=== PATIENT | female | born 1955 | race Caucasian/White ===

== ENCOUNTER → 2016-11-18 | Outpatient (CLI) | payer MEDICARE, OTHER ==
[~2016-11-18] MED LIST: ASPI-110 PO; FOLI5CAP PO; GEMF600T PO; HYDR-3533 PO; LEVO25TA4 PO; METO50TA PO; PERC5TAB12 PO; PRAV10TA PO; REME45TA PO; TEMA30CA PO; VENL37.5 PO; VITA500T49 PO
[2016-11-18 10:14] LABS: INTERNATIONAL NORMALIZED RATIO 0.9 RATIO; PROTHROMBIN TIME - PATIENT 10.2 SEC (9.8-11.6)
[2016-11-18 10:32] LABS: ALT (GPT) 19 U/L (10-53); ANION GAP 6 MEQ/L (5-15); AST (GOT) 17 U/L (15-37); BICARBONATE 27.1 MEQ/L (21.0-32.0); CHLORIDE 109 MEQ/L (98-107); GLOMERULAR FILTRATION RATE 69 ML/MIN (>89); GLUCOSE,FASTING 92 MG/DL (74-99); POTASSIUM 4.3 MEQ/L (3.5-5.1); SODIUM (NA) 142 MEQ/L (136-145)
[2016-11-18 10:38] LABS: ALKALINE PHOSPHATASE 263 U/L (45-117); BLOOD UREA NITROGEN 11 MG/DL (7-18); TOTAL BILIRUBIN ADULT 0.3 MG/DL (0.2-1.0)
--- NOTE | 2016-11-18 11:10 | RADRPT ---
EXAM DATE/TIME: 11/18/2016 10:00 [place] COMPARISON: No previous studies available for comparison. INDICATIONS : Evaluate for pneumothorax, pneumonia and or communicable diseases. Pre-op for left foot surgery. MEDICAL HISTORY : Hypertension. SURGICAL HISTORY : None. ENCOUNTER: Initial ACUITY: 1 day PAIN SCORE: 0/10 LOCATION: Bilateral chest FINDINGS: PA and lateral views of the chest demonstrate the lungs to be symmetrically aerated without evidence of mass, infiltrate or effusion. The cardiomediastinal contours are unremarkable. Osseous structure s are intact. CONCLUSION: No acute disease. Oscar Rutherford MD on November 18, 2016 at 11:08 Board Certified Radiologist. This report was verified electronically.
== END ==
LOC: CPRE 09:08
PROVIDERS: ATTEND Podiatrist Primary Podiatric Medicine
DX: Z01.812 Encounter for preprocedural laboratory examination (principal); G57.52 Tarsal tunnel syndrome, left lower limb
CPT/HCPCS: 36415; 71020; 80053; 85610

== ENCOUNTER → 2016-11-22 | Day surgery (SDC) | payer MEDICARE, OTHER ==
[~2016-11-22] VITALS: Ht 157.5 cm; Wt 89.5 kg
[~2016-11-22] MED LIST changes: +*morphine SULFATE 8 MG/ML PERIprocedure ONLY ONE; +BETAMETHASONE SOD PHOS/ACETATE SUSP 30 MG/5 ML VIAL ONE; +BUPIVACAINE HCL PF 0.5% 30 ML VIAL ONE; +CHLORHEXIDINE GLUCONATE 2 % 1 PACK (2 CLOTHS) TOPICAL PRN; +INSULIN HUMAN REGULAR 1,000 UNITS/10 ML VIAL SQ PRN; +LACTATED RINGER'S 1000 ML IV PRN; +LIDOCAINE HCL 2% 50 ML VIAL ONE; +METOPROLOL TARTRATE 25 MG TAB PO PRN; +MORPHINE SULFATE 4 MG/ML INJ IV PRN; +NALOXONE HCL 0.4 MG/ML AMP IV PRN; +ONDANSETRON HCL 4 MG/2 ML VIAL IV PUSH ONE; +POVIDONE IODINE 5% (ANTISEPSIS KIT) 4 APPLICATIONS EACH NARE PRN; +PROPOFOL 200 MG/20 ML AMP IV ONE; +Post-op Orders (for Pharmacy) MISC XX ONE; +SODIUM CHLORID 0.9% 500 ML IV PRN; +SODIUM CHLORIDE 0.9% FLUSH 10 ML FLUSH IV FLUSH PRN; +SODIUM CHLORIDE 0.9% FLUSH 10 ML FLUSH IV FLUSH SCH; +TRIAMCINOLONE ACETONIDE 40 MG/ML VIAL ONE; +ceFAZolin 2 GM PREMIX 50 ML IV SCH; +fentaNYL CITRATE 250 MCG/5 ML AMP ONE; +oxyCODONE/ACETAMINOPHEN 5 MG/325 MG TAB ONE; +oxyCODONE/ACETAMINOPHEN 5 MG/325 MG TAB PO ONE
[2016-11-22 08:05] VITALS: BP 125/78; PULSE 70; RESP 16; TEMP 97.5; O2SAT 95
[2016-11-22 08:14] LABS: AUTOMATED NEUTROPHIL # 3.3 TH/MM3 (1.8-7.7); BASOPHIL % 0.4 % (0.0-2.0); EOSINOPHIL # 0.1 TH/MM3 (0-0.4); EOSINOPHIL % 1.8 % (0.0-4.0); HEMATOCRIT 38.4 % (35.0-46.0); HEMO FLAGS DIFF FINAL; LYMPH % 31.2 % (9.0-44.0); LYMPHOCYTE # 1.8 TH/MM3 (1.0-4.8); MEAN CELL VOLUME 94.3 FL (80.0-100.0); MEAN CORPUSCULAR HEMOGLOBIN 30.6 PG (27.0-34.0); MEAN CORPUSCULAR HGB CONC 32.5 % (32.0-36.0); MONO % 9.7 % (0.0-8.0); NEUT % 56.9 % (16.0-70.0); PLATELET COUNT 333 TH/MM3 (150-450); RED BLOOD COUNT 4.07 MIL/MM3 (4.00-5.30); RED CELL DISTRIBUTION WIDTH 14.2 % (11.6-17.2); WHITE BLOOD COUNT 5.8 TH/MM3 (4.0-11.0)
--- NOTE | 2016-11-22 10:09 | PD.OP ---
Operative Report Date of Surgery: Nov 22, 2016 Preoperative Diagnosis: (1) Tarsal tunnel syndrome of left side Postoperative Diagnosis: (1) Tarsal tunnel syndrome of left side Procedure: Tarsal tunnel decompression left foot Anesthesia: Gen. anesthesia Surgeon: Oscar Matias DPM Director Network Development(s): IMELDA Mcdowell Operation and Findings: Patient is brought to the operating room placed on the operating table in supine position. A pneumatic thigh cuff was placed around the patient's left thigh after adequate padding. Patient was given general inhalation anesthesia the left foot and leg were prepped and draped in usual sterile manner. The left lower extremity was elevated above the operating table for a period of 3 minutes at which time the pneumatic ankle cuff was inflated to 275 mmHg. Left lower extremity was then lowered to the operating table and attention was directed to the tarsal canal. At this time a 9 cm curvilinear incision was made posterior to the medial malleolus proximal and distal into the sabas pedis of the left foot foot using careful dissection the incision was deepened through subcutaneous tissue and fat down to the level of the retinaculum overlying the sabas pedis. This was transected. Any tight bands up into the leg and down into the foot were resected. Then there did not appear to be any tightness now overlying the posterior tibial artery. The area was flushed with copious amounts of sterile saline. Skin edges were approximated and closed with 2-0 Vicryl and surgical skin pawan. The area was anesthetized with 0.5% Marcaine and 40 mg of Kenalog. The incision was dressed with Adaptic 4 x 4's and Ambar. A posterior splint was applied. The pneumatic ankle cuff was deflated at the 30 minute jimmy. Vascular status was intact to all toes of the left foot. Estimated blood loss was less than 5 cc. Jose instrument count was noted to be correct No specimen was sent to pathology. Patient tolerated procedures and anesthesia well and left the OR to PACU in apparent satisfactory condition without vital signs stable and vascular status intact to all digits of the left foot Oscar Matias DPM Nov 22, 2016 10:09
[2016-11-22 11:40] VITALS: BP 137/76; PULSE 68; RESP 18; TEMP 96.6; O2SAT 95
== END | disposition home or self-care (01) ==
LOC: HSDC 07:10
PROVIDERS: ATTEND Podiatrist Primary Podiatric Medicine
DX: G57.52 Tarsal tunnel syndrome, left lower limb (principal); I10 Essential (primary) hypertension; I25.2 Old myocardial infarction; I25.10 Atherosclerotic heart disease of native coronary artery without angina pectoris
CPT/HCPCS: 01470; 28035; 85025; J0690; J2270; J2405; J3010; J3301; J7120; J0702